=== PATIENT | female | born 1970 | race Caucasian/White ===

== ENCOUNTER 2024-07-22 06:51 | Outpatient (CLI) | payer BC ==
[~2024-07-22 06:51] MED LIST: GADOTERATE MEGLUMINE 7.5 MMOL/15 ML VIAL IV ONE; LIDOcaine 1% 30ml preserv. free vial ONE; LIDOcaine 1%/PF 5ML 10 MG/ML VIAL ONE; iohexol 300 MG/1 ML 50ml polymer ONE
== END 2024-07-22 23:59 | disposition home or self-care (01) ==
LOC: RAD 06:51
PROVIDERS: ATTEND Family Medicine Sports Medicine
DX: S43.431A Superior glenoid labrum lesion of right shoulder, initial encounter (principal); M19.011 Primary osteoarthritis, right shoulder; M75.121 Complete rotator cuff tear or rupture of right shoulder, not specified as traumatic; M25.411 Effusion, right shoulder; M75.51 Bursitis of right shoulder; M77.9 Enthesopathy, unspecified; M25.511 Pain in right shoulder; X58.XXXA Exposure to other specified factors, initial encounter; Y93.89 Activity, other specified; Y92.89 Other specified places as the place of occurrence of the external cause; Y99.8 Other external cause status
CPT/HCPCS: 23350; 73222; 77002; A9575; J3490; Q9967; 73040

== ENCOUNTER 2025-06-03 06:10 | Outpatient (CLI) | payer BC ==
[2025-06-03] MEDS ORDERED: iohexol 300 MG/1 ML 50ml polymer ONE (06:40)
[2025-06-03] MEDS ORDERED: LIDOcaine 1%/PF 5ML 10 MG/ML VIAL ONE (06:40)
[2025-06-03] MEDS ORDERED: LIDOcaine 1% 30ml preserv. free vial ONE (06:40)
[2025-06-03] MEDS ORDERED: GADOTERATE MEGLUMINE 7.5 MMOL/15 ML VIAL IV ONE (06:40)
--- NOTE | 2025-06-03 08:51 | RADIOLOGY REPORT ---
C-ARM FLUOROSCOPY: PROCEDURE: Right shoulder MRI arthrogram FLUOROSCOPY TIME: 0.1 DAP: 1 mgy FINDINGS: Spot intraoperative C arm radiographs demonstrating right shoulder MRI arthrogram. IMPRESSION: Please refer to surgical report for detailed findings.
--- NOTE | 2025-06-03 09:54 | RADIOLOGY REPORT ---
CLINICAL INDICATION: STRAIN OF MUSC/TEND THE ROTATOR CUFF OF RIGHT SHOULDER, INIT COMPARISON: No prior imaging is available for comparison at this time. TECHNIQUE: Multiplanar, multi-sequence MRI of the right shoulder was performed after the uneventful intra-articular administration of dilute gadolinium solution. Please see separate procedural report. Contrast: None INTERPRETATION: Glenohumeral joint: The joint is appropriately distended with intra-articular contrast. There is no fracture or bone marrow edema. The alignment is normal. There is no focal cartilage defect. Acromioclavicular joint: The acromoclavicular joint is narrowed capsular hypertrophy. There is a type 1 acromion. Rotator cuff and bursae: Suture anchors in the humeral head suggesting prior rotator cuff surgery. Supraspinatus thickening which may be related to scarring and/or sequelae of prior surgery. There is also superimposed partial-thickness articular surface tear that extends to the myotendinous junction as an interstitial tear. There is partial-thickness articular surface tear of infraspinatus. Subscapularis tendon is intact. Teres minor tendon is intact. There is no muscle atrophy. There is fluid in the subacromial subdeltoid bursa. Biceps tendon and glenoid labrum: The biceps tendon is normal in appearance. The labrum is unremarkable. IMPRESSION: 1. Postsurgical changes in the humeral head of the right shoulder. Please correlate with surgical history. 2. Scarring and/or tendinosis of supraspinatus with a partial-thickness articular surface tear that extends through the mid substance of the tendon compatible with interstitial tear near the myotendinous junction. 3. Infraspinatus partial-thickness articular surface tear. 4. No full-thickness rotator cuff tear. 5. AC joint arthrosis. 6. Subacromial subdeltoid bursitis.
== END 2025-06-03 23:59 | disposition home or self-care (01) ==
LOC: MRI 06:10
DX: S46.011A Strain of muscle(s) and tendon(s) of the rotator cuff of right shoulder, initial encounter (principal); Z79.890 Hormone replacement therapy; Z79.899 Other long term (current) drug therapy; X58.XXXA Exposure to other specified factors, initial encounter; Y93.89 Activity, other specified; Y92.89 Other specified places as the place of occurrence of the external cause; Y99.8 Other external cause status
CPT/HCPCS: 23350; 73222; 77002; A9575; J2003; J3490; Q9967